=== PATIENT | male | born 1955 | race African-American/Black ===

== ENCOUNTER 2024-02-12 11:30 | Emergency (ER) | payer MEDICARE ==
[~2024-02-12] VITALS: Ht 177.8 cm; Wt 82.0 kg
[2024-02-12 11:34] VITALS: BP 0/0; PULSE 70; RESP 16
== END 2024-02-12 11:47 ==
LOC: EDBD 11:41 → ER 11:41
DX: I46.9 Cardiac arrest, cause unspecified (principal)
CPT/HCPCS: 31500; 92950; 99285